=== PATIENT | female | born 1985 | race Caucasian/White ===

== ENCOUNTER 2017-02-15 02:05 | Emergency (ER) | payer OTHER ==
[~2017-02-15] VITALS: Ht 162.6 cm; Wt 101.8 kg
[~2017-02-15 02:05] MED LIST: ALBU18HF INHALATION; ASPI-535 PO; ATOR20TA38 PO; BECL8.7A5 INH; CLOP75TA27 PO; GABA-528 PO; HYD25 PO; INSU300I SQ; LISI40TA9 PO; MTF1000T PO; PANT20TA2 PO; SERT50TA6 PO; TOPI25CA2 PO; TRAM50TA2 PO
[2017-02-15 02:24] VITALS: Ht 162.6 cm; Wt 101.8 kg
[2017-02-15 03:53] VITALS: TEMP 98.1
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
[2017-02-15] MEDS ORDERED: LEVETIRACETAM 500 MG TAB PO ONE (04:00)
[2017-02-15] MEDS ORDERED: IBUPROFEN 600 MG TAB PO ONE (04:00)
[2017-02-15] MEDS ORDERED: ACETAMINOPHEN 325 MG TAB PO ONE (04:00)
[2017-02-15 04:45] VITALS: BP 112/75; PULSE 75; RESP 16
== END 2017-02-15 04:49 | disposition home or self-care (01) ==
LOC: E/R 02:05
DX: G40.909 Epilepsy, unspecified, not intractable, without status epilepticus (principal); M54.31 Sciatica, right side; F11.20 Opioid dependence, uncomplicated; G89.4 Chronic pain syndrome; I10 Essential (primary) hypertension; J45.909 Unspecified asthma, uncomplicated; E11.9 Type 2 diabetes mellitus without complications; Z79.4 Long term (current) use of insulin; Z79.84 Long term (current) use of oral hypoglycemic drugs; Z79.01 Long term (current) use of anticoagulants
CPT/HCPCS: 82962; 93005; Z7502; Z7610; 99283

== ENCOUNTER 2018-03-21 13:29 | Emergency (ER) | END 2018-03-21 19:45 | disposition left against medical advice (07) ==

== ENCOUNTER 2018-06-11 23:53 | Emergency (ER) | END 2018-06-12 07:05 | disposition home or self-care (01) ==

== ENCOUNTER 2018-10-01 14:49 | Emergency (ER) | payer OTHER ==
[~2018-10-01] VITALS: Ht 160 cm; Wt 107.0 kg
[~2018-10-01 14:49] MED LIST changes: +BUSP10TA2 PO; +DULA1.5P SQ; +FURO40TA4 PO; -HYD25 PO; +INSU100I12 SQ; +INSU100I33 SC; -INSU300I SQ; +LEVE100018 PO; +LISI-471 PO; -LISI40TA9 PO; +TOPI100T11 PO; -TOPI25CA2 PO; +TOPI50TA13 PO; +TRAZ-111 PO
[2018-10-01 14:53] VITALS: RESP 18; Ht 160 cm; Wt 107.0 kg
[2018-10-01] MEDS ORDERED: SOD CHLORIDE 0.9% 500 ML IV STA (16:01)
[2018-10-01] MEDS ORDERED: SOD CHLORIDE 0.9% 1,000 ML IV ONE (16:39)
[2018-10-01 17:21] VITALS: BP 177/103; PULSE 101
--- NOTE | 2018-10-01 18:59 | ERD ---
ER Documentation Chief Complaint Chief Complaint PAINFUL URINATION X3 DAYS HPI Patient is a 33-year-old female with hypertension and diabetes who presents with 3 days of urinary symptoms. She feels like she likely has a UTI. She was previously on Keflex and then Augmentin but was having itchiness. She has multiple allergies and says that she can only get IV imipenem for treatment. She did have a recent pyelonephritis. She has had subjective fevers but did not take her temperature. She said that the symptoms overall started 2 weeks ago. Upon review of old medical records the patient has multiple visits to the ER for various complaints. Review of the emergency department information exchange system shows visits to 5 separate emergency departments for a total of 26 visits over the past 1 year. She does have a primary doctor but she does not have a urologist. ROS All systems reviewed and are negative except as per history of present illness. Medications Home Meds Active Scripts Tramadol HCl (Tramadol HCl) 50 Mg Tablet, 50 MG PO Q6 PRN for PAIN, #15 TAB Prov:JESSIE SALGUERO DO 06/12/18 Reported Medications Trazodone Hcl* (Trazodone Hcl*) 50 Mg Tablet, 50 MG PO BID, #60 TAB 03/21/18 Buspirone Hcl* (Buspirone Hcl*) 10 Mg Tab, 10 MG PO BID, TAB 03/21/18 Dulaglutide (Trulicity) 1.5 Mg/0.5 Ml Pen.injctr, 1.5 MG SQ EVERY Thursday03/21/18 Topiramate* (Topiramate*) 100 Mg Tablet, 100 MG PO QHS, TAB 03/21/18 Topiramate* (Topiramate*) 50 Mg Tablet, 50 MG PO BID, TAB 03/21/18 Insulin Glargine,Hum.rec.anlog (Basaglar Kwikpen U-100) 100 Unit/1 Ml Insuln.pen, 80 UNIT SC BID, EA 03/21/18 Insulin Lispro (Humalog Kwikpen U-100) 100 Unit/1 Ml Insuln.pen, 80 UNIT SQ AC MEALS, EA ADD 15 UNITS PER CARB 03/21/18 Furosemide* (Furosemide*) 40 Mg Tablet, 40 MG PO BID, TAB 03/21/18 Levetiracetam* (Keppra*) 1,000 Mg Tablet, 1000 MG PO TID, TAB 03/21/18 Lisinopril* (Lisinopril*) 20 Mg Tablet, 20 MG PO DAILY, #30 TAB 03/21/18 Clopidogrel Bisulfate (Clopidogrel) 75 Mg Tablet, 75 MG PO DAILY, #30 TAB 12/26/15 Atorvastatin Calcium* (Atorvastatin Calcium*) 20 Mg Tablet, 20 MG PO QHS, #30 TAB 12/26/15 Albuterol Sulfate* (Ventolin HFA*) 18 Gm Hfa.aer.ad, 2 PUFF INHALATION Q4H, #1 INHALER 12/26/15 Sertraline Hcl* (Sertraline Hcl*) 50 Mg Tablet, 50 MG PO DAILY, #30 TAB 12/26/15 Pantoprazole* (Protonix*) 20 Mg Tablet.dr, 20 MG PO DAILY, TAB 12/26/15 Aspirin Ec (Aspir 81) 81 Mg Tablet.dr, 81 MG PO DAILY, #30 TAB 12/26/15 Gabapentin* (Gabapentin*) 800 Mg Tablet, 800 MG PO TID, #90 TAB 12/26/15 Metformin* (Glucophage*) 1,000 Mg Tablet, 1000 MG PO BID, #60 TAB 12/26/15 Beclomethasone Dip* (Qvar 80*) 7.3 Gm Inha, 2 PUFF INH BID, #1 INHALER 07/03/15 Allergies Allergies: Coded Allergies: ceftriaxone (Verified Allergy, Severe, itchin, throat tightness, 03/21/18) peas (Verified Allergy, Severe, SOB,CHEST TIGHTNESS, 10/01/18) nitrofurantoin (Verified Allergy, Intermediate, HIVES, 10/01/18) ciprofloxacin (Verified Allergy, Mild, 03/21/18) gentamicin (Verified Allergy, Mild, 03/21/18) rashes levofloxacin (Verified Allergy, Mild, 03/21/18) morphine (Verified Allergy, Mild, rash, 03/21/18) must take with benadryl Sulfa (Sulfonamide Antibiotics) (Verified Allergy, Unknown, 03/21/18) acetaminophen (Verified Allergy, Unknown, 03/21/18) cephalexin (Unverified Allergy, Unknown, 03/21/18) hydrocodone (Verified Allergy, Unknown, 03/21/18) ibuprofen (Verified Allergy, Unknown, 03/21/18) squash (Unverified Allergy, Unknown, 03/21/18) sulfamethoxazole (Verified Allergy, Unknown, 03/21/18) trimethoprim (Verified Allergy, Unknown, 03/21/18) ketorolac tromethamine (Verified Adverse Reaction, Mild, Headache,THROAT SWELLING, 10/01/18) Uncoded Allergies: Green Beans (Adverse Reaction, Mild, Rash, 12/26/15) LACTOSE INTOLERANT (Adverse Reaction, Mild, 12/26/15) Patient can tolerated Cheese PMhx/Soc Anesthesia Reaction: No Hx Neurological Disorder: Yes (SE) Hx Respiratory Disorders: No Hx Cardiac Disorders: Yes (HTN) Hx Psychiatric Problems: No Hx Miscellaneous Medical Probl: Yes (DM) Hx Alcohol Use: No Hx Substance Use: No Hx Tobacco Use: No Smoking Status: Never smoker FmHx Family History: diabetes Physical Exam Vitals Vital Signs Date Temp Pulse Resp B/P (MAP) Pulse Ox O2 O2 Flow FiO2 Time Delivery Rate 10/01/18 101 177/103 17:21 (127) 10/01/18 98.6 104 18 225/91 99 14:53 (135) Physical Exam Const: No acute distress Head: Atraumatic Eyes: Normal Conjunctiva ENT: Normal External Ears, Nose and Mouth. Neck: Full range of motion. No meningismus. Resp: Clear to auscultation bilaterally Cardio: Regular rate and rhythm, no murmurs Abd: Soft, non tender, non distended. Normal bowel sounds Skin: No petechiae or rashes Back: No midline or flank tenderness Ext: No cyanosis, or edema Neur: Awake and alert Psych: Normal Mood and Affect Results 24 hrs Laboratory Tests Test 10/01/18 15:00 10/01/18 15:50 10/01/18 16:11 Bedside Glucose 292 mg/dL Urine Color YELLOW Urine Clarity SLIGHTLY CLOUDY Urine pH 7.0 Urine Specific [place] 1.028 Urine Ketones NEGATIVE mg/dL Urine Nitrite NEGATIVE mg/dL Urine Bilirubin NEGATIVE mg/dL Urine Urobilinogen NEGATIVE mg/dL Urine Leukocyte Esterase 3+ Noel/ul Urine Microscopic RBC 6 /HPF Urine Microscopic WBC 17 /HPF Urine Squamous Epithelial Cells FEW /HPF Urine Bacteria FEW /HPF Urine Mucus FEW /HPF Urine Hemoglobin 3+ mg/dL Urine Glucose 3+ mg/dL Urine Total Protein NEGATIVE mg/dl Urine Test NEGATIVE Current Medications Medications Dose Sig/Jennie Start Time Status Last (Trade) Ordered Route PRN Stop Time Admin Dose Reason Admin Sodium 500 ml @ Q1H STAT 10/01/18 DC Chloride 500 mls/hr IV 16:01 10/01/18 17:00 Sodium 1,000 ml @ Q0M ONCE 10/01/18 DC Chloride 0 mls/hr IV 16:39 10/01/18 16:44 Procedures/MDM Urinalysis shows infection. Urine culture is pending. Sugar was elevated at 292 but I doubt diabetic ketoacidosis. Patient is a 33-year-old female who presents with repeat urine infection. I told her that I wanted to admit her to the hospital for IV imipenem. However she says "we have a problem because my son is with me and I cannot stay in the hospital and leave him alone". She asked if IV imipenem could be set up for outpatient infusion and I told her that she could absolutely speak with her doctor about setting this up. She has [employer] insurance and they are usually well adapted to do IV antibiotic infusion at home. She is otherwise well-appearing and well-hydrated and I doubt sepsis at this time. She just is a difficult case because of her multiple drug allergies. Again I offered her admission but she refused. The patient can return for any worsening symptoms. She should follow- up with her primary doctor within 24 hours to discuss treatment. Departure Diagnosis: Primary Impression: Cystitis Condition: Fair Patient Instructions: Cystitis Referrals: Dr. Quigley Additional Instructions: Follow up with your Primary doctor to arrange outpatient Imipenem as you do not want to stay in the hospital today. Follow up within 24 hours. GUNJAN YANCEY MD Oct 01, 2018 18:59
== END 2018-10-01 17:27 | disposition home or self-care (01) ==
LOC: FTE 14:49
DX: N30.90 Cystitis, unspecified without hematuria (principal); E11.9 Type 2 diabetes mellitus without complications; I10 Essential (primary) hypertension; Z79.4 Long term (current) use of insulin; Z79.82 Long term (current) use of aspirin
CPT/HCPCS: 81001; 82962; 84703; 87086; J7030; J7040; 99283

== ENCOUNTER 2019-02-09 22:13 | Emergency (ER) | payer SELFPAY ==
[~2019-02-09] VITALS: Ht 165.1 cm; Wt 98.6 kg
[2019-02-09 22:21] VITALS: BP 141/68; PULSE 97; RESP 20; Ht 165.1 cm; Wt 98.6 kg
== END 2019-02-09 23:21 | disposition left against medical advice (07) ==
LOC: E/R 22:13
DX: Z53.21 Procedure and treatment not carried out due to patient leaving prior to being seen by health care provider (principal)
CPT/HCPCS: 82962